=== PATIENT | female | born 1970 | race Hispanic/Latino ===

== ENCOUNTER → 2022-09-07 | Outpatient (CLI) | payer MEDICARE | LOC: DX 14:54 | PROVIDERS: ATTEND Nurse Practitioner Adult Health | DX: Z12.31 Encounter for screening mammogram for malignant neoplasm of breast (principal); Z13.820 Encounter for screening for osteoporosis | CPT/HCPCS: 77067; 77080 ==

== ENCOUNTER 2022-12-27 16:59 | Emergency (ER) | payer MEDICARE ==
[~2022-12-27] VITALS: Ht 160 cm; Wt 79.4 kg
[2022-12-27 17:14] VITALS: O2SAT 96
[2022-12-27] MEDS ORDERED: CLEOCIN HCL300 MG PO (17:34)
[2022-12-27] MEDS ORDERED: NAPROSYN500 MG PO (17:34)
[2022-12-27] MEDS ORDERED: IBUPROFEN 600 MG TAB PO STA (17:35)
== END 2022-12-27 17:46 | disposition home or self-care (01) ==
LOC: FSED 17:04
DX: L02.31 Cutaneous abscess of buttock (principal); F41.9 Anxiety disorder, unspecified; F17.210 Nicotine dependence, cigarettes, uncomplicated
CPT/HCPCS: 99283